=== PATIENT | female | born 1955 | race African-American/Black ===

== ENCOUNTER 2018-12-29 21:43 | Emergency (ER) | payer MEDICARE, MEDICAID ==
[~2018-12-29] VITALS: Ht 167.6 cm; Wt 36.4 kg
[2018-12-29] MEDS ORDERED: ATEN50TA PO (22:42)
[2018-12-29] MEDS ORDERED: ALBU8HFA NASAL (22:42)
[2018-12-29] MEDS ORDERED: ROFL500T PO (22:42)
[2018-12-29] MEDS ORDERED: BECL10.62 IH (22:42)
[2018-12-29] MEDS ORDERED: QUET300T2 PO (22:42)
[2018-12-29] MEDS ORDERED: FERR-89 PO (22:42)
[2018-12-29] MEDS ORDERED: LOVA20 PO (22:42)
[2018-12-29] MEDS ORDERED: AMLO2.5T4 PO (22:42)
[2018-12-29] MEDS ORDERED: ALEN35TA23 PO (22:42)
[2018-12-29 23:22] LABS: BASOPHILS % (AUTO) 1.2 % (0.0-2.0); EOSINOPHILS % (AUTO) 1.3 % (1.0-6.0); HEMATOCRIT 39.1 % (36-46); LYMPHOCYTES # (AUTO) 2.3 K/uL (1.0-4.8); LYMPHOCYTES % (AUTO) 34.6 % (22.0-44.0); MEAN CORPUSCULAR HEMOGLOBIN 29.8 pg (26.0-34.0); MEAN CORPUSCULAR HGB CONC 33.2 G/dL (31.0-37.0); MEAN CORPUSCULAR VOLUME 90 fL (80-100); MONOCYTES # (AUTO) 0.4 K/uL (0.1-1.0); MONOCYTES % (AUTO) 5.3 % (2.0-9.0); NEUTROPHILS # (AUTO) 3.9 K/uL (1.8-7.7); NEUTROPHILS % (AUTO) 57.6 % (40.0-70.0); PLATELET COUNT (AUTO) 261 K/uL (150-450); RED BLOOD CELL COUNT(AUTO) 4.36 MIL/uL (4.00-5.20); RED CELL DISTRIBUTION WIDTH 16.2 % (11.5-14.5)
[2018-12-29 23:37] LABS: ALANINE AMINOTRANSFERASE 10 U/L (12-78); ALBUMIN 3.1 g/dL (3.4-5.0); ALKALINE PHOSPHATASE 67 U/L (46-116); ANION GAP 6 mmol/L (8-16); ASPARTATE AMINOTRANSFERASE 12 U/L (15-37); BILIRUBIN,TOTAL 0.2 mg/dL (0.1-1.0); CALCIUM, TOTAL 9.1 mg/dL (8.8-10.5); CARBON DIOXIDE 32 mmol/L (22-29); CHLORIDE 106 mmol/L (98-107); CREATININE 0.68 mg/dL (0.60-1.30); GLOMERULAR FILTR. RATE CALC > 60 mL/min (>60); GLUCOSE,RANDOM 130 mg/dL (70-110); SODIUM SERUM 144 mmol/L (136-145); TOTAL PROTEIN, SERUM 7.5 g/dL (6.4-8.2); UREA NITROGEN, BLOOD 11 mg/dL (7-18)
[2018-12-29 23:45] LABS: ACETAMINOPHEN < 2 mcg/mL (10-30); POTASSIUM 2.7 mmol/L (3.5-5.1)
[2018-12-29 23:50] LABS: SALICYLATE 2.8 mg/dL (2.8-20.0)
[2018-12-30] MEDS ORDERED: POTASSIUM CHLORIDE 20 MEQ ER TABLET PO ONE
[2018-12-30 03:29] LABS: AMPHET/METH SCREEN,URINE NEGATIVE (NEGATIVE); BARBITURATE SCREEN, URINE NEGATIVE (NEGATIVE); BENZODIAZEPINES SCREEN,URINE NEGATIVE (NEGATIVE); CANNABINOID SCREEN,URINE NEGATIVE (NEGATIVE); COCAINE SCREEN,URINE NEGATIVE (NEGATIVE); METHADONE SCREEN, URINE NEGATIVE (NEGATIVE); OPIATE SCREEN,URINE NEGATIVE (NEGATIVE); PHENCYCLIDINE SCREEN,URINE NEGATIVE (NEGATIVE)
[2018-12-30 03:33] LABS: APPEARANCE,URINE CLEAR (CLEAR); BILIRUBIN,URINE NEGATIVE (NEGATIVE); GLUCOSE, URINE (UA) NEGATIVE (NEGATIVE); KETONES,URINE NEGATIVE (NEGATIVE); LEUKOCYTE ESTERASE ,URINE NEGATIVE (NEGATIVE); NITRATE,URINE NEGATIVE (NEGATIVE); OCCULT BLOOD,URINE NEGATIVE (NEGATIVE); PH,URINE 6.5 (5.0-8.0); PROTEIN,URINE NEGATIVE (NEGATIVE)
[2018-12-30 03:38] LABS: BACTERIA,URINE Rare /HPF (None Seen); MUCUS,URINE Moderate LPF (None Seen); RBC,URINE None Seen /HPF (0-2); SQUAMOUS EPITHELIAL CELL,UR Rare /LPF (None Seen)
[2018-12-30 04:45] VITALS: BP 150/80
== END 2018-12-30 06:47 | disposition short-term general hospital (02) ==
LOC: EMS 21:49
DX: F20.9 Schizophrenia, unspecified (principal); E87.6 Hypokalemia; I10 Essential (primary) hypertension; E78.00 Pure hypercholesterolemia, unspecified
CPT/HCPCS: 36415; 80053; 80307; 81001; 85025; 99285; G0480; G0481

== ENCOUNTER 2021-03-11 19:56 | Inpatient (IN) | payer MEDICARE, MEDICAID ==
[~2021-03-11] VITALS: Ht 149.9 cm; Wt 33.7 kg
[~2021-03-11 19:56] MED LIST: ALBU8HFA NASAL; ALEN35TA41 PO; AMLO2.5T96 PO; ATEN-72 PO; BECL10.62 IH; FERR-89 PO; LOVA20TA73 PO; QUET300T2 PO; ROFL500T PO
[2021-03-11] MEDS ORDERED: ALBUTEROL SULFATE 5 MG/ML 20 ML NEB SOLN [BULK] NEB ONE (20:15)
[2021-03-11] MEDS ORDERED: MethylPREDNISolone SOD SUCC 125 MG/2 ML VIAL IVP ONE (20:15)
[2021-03-11] MEDS ORDERED: IPRATROPIUM BROMIDE 0.5 MG/2.5 ML NEB SOLUTION NEB ONE (20:15)
[2021-03-11 20:26] LABS: BASOPHILS % (AUTO) 0.4 % (0.0-2.0); EOSINOPHILS % (AUTO) 0 % (1.0-6.0); HEMATOCRIT 39.1 % (36-46); HEMOGLOBIN 12.6 g/dL (12.0-16.0); LYMPHOCYTES # (AUTO) 0.6 K/uL (1.0-4.8); LYMPHOCYTES % (AUTO) 8.5 % (22.0-44.0); MEAN CORPUSCULAR HEMOGLOBIN 28.8 pg (26.0-34.0); MEAN CORPUSCULAR HGB CONC 32.2 G/dL (31.0-37.0); MEAN CORPUSCULAR VOLUME 90 fL (80-100); MONOCYTES # (AUTO) 0.5 K/uL (0.1-1.0); MONOCYTES % (AUTO) 6.9 % (2.0-9.0); NEUTROPHILS % (AUTO) 84.2 % (40.0-70.0); PLATELET COUNT (AUTO) 288 K/uL (150-450); RED BLOOD CELL COUNT(AUTO) 4.37 MIL/uL (4.00-5.20); RED CELL DISTRIBUTION WIDTH 14.7 % (11.5-14.5)
[2021-03-11 20:36] LABS: ANION GAP 7 mmol/L (8-16); CALCIUM, TOTAL 9.2 mg/dL (8.8-10.5); CARBON DIOXIDE 31 mmol/L (22-29); CHLORIDE 104 mmol/L (98-107); CREATININE 0.79 mg/dL (0.60-1.30); GLOMERULAR FILTR. RATE CALC > 60 mL/min (>60); GLUCOSE,RANDOM 155 mg/dL (70-110); POTASSIUM 4.6 mmol/L (3.5-5.1); SODIUM SERUM 142 mmol/L (136-145); UREA NITROGEN, BLOOD 38 mg/dL (7-18)
[2021-03-11] MEDS ORDERED: ACETAMINOPHEN 325 MG TABLET ONE (20:39)
[2021-03-11 20:42] LABS: BILIRUBIN,TOTAL 0.3 mg/dL (0.1-1.0); TOTAL PROTEIN, SERUM 7.5 g/dL (6.4-8.2)
[2021-03-11] MEDS ORDERED: ACETAMINOPHEN 325 MG TABLET PO ONE (20:45)
[2021-03-11 20:50] LABS: B-TYPE NATRIURETIC PEPTIDE 80 pg/mL (0-100)
[2021-03-11 20:55] LABS: ALANINE AMINOTRANSFERASE 14 U/L (12-78); ALBUMIN 3.2 g/dL (3.4-5.0); ALKALINE PHOSPHATASE 61 U/L (46-116); ASPARTATE AMINOTRANSFERASE 19 U/L (15-37)
[2021-03-11] MEDS ORDERED: IPRATROPIUM BROMIDE 0.5 MG/2.5 ML NEB SOLUTION NEB PRN (22:00)
[2021-03-11] MEDS ORDERED: ALBUTEROL SULFATE 2.5 MG/0.5 ML NEB SOLUTION NEB PRN (22:00)
[2021-03-11] MEDS ORDERED: ONDANSETRON HCL 4 MG/2 ML VIAL IVP PRN (22:00)
[2021-03-11] MEDS ORDERED: ACETAMINOPHEN 325 MG TABLET PO PRN ×2 (22:00)
[2021-03-11 22:18] LABS: COVID AG,FIA SOURCE NASOPHARYNGEAL
[2021-03-11] MEDS ORDERED: IPRATROPIUM BROMIDE 0.5 MG/2.5 ML NEB SOLUTION NEB SCH (23:00)
[2021-03-11] MEDS ORDERED: ALBUTEROL SULFATE 2.5 MG/0.5 ML NEB SOLUTION NEB SCH (23:00)
[2021-03-12] MEDS: MethylPREDNISolone SOD SUCC 125 MG/2 ML VIAL IVP SCH ×5 (00:47→23:09)
[2021-03-12] MEDS: HEPARIN SODIUM,PORCINE 5,000 UNITS/ML VIAL SQ SCH ×4 (00:47→23:08)
[2021-03-12] MEDS: ATENOLOL 25 MG TABLET PO SCH ×3 (00:47→21:13)
[2021-03-12 08:45] VITALS: BP 167/97
[2021-03-12] MEDS: FAMOTIDINE 20 MG TABLET PO SCH (08:59)
[2021-03-12] MEDS ORDERED: PNEUMOCOCCAL VACCINE POLYVALENT 0.5 ML VIAL [PPSV23] IM. ONE (10:45)
[2021-03-12 11:39] VITALS: BP 112/61
[2021-03-12] MEDS: NICOTINE 21 MG/24 HOUR PATCH TD SCH (14:10)
[2021-03-12 15:49] VITALS: BP 117/77
[2021-03-12] MEDS: ALBUTEROL SULFATE 2.5 MG/0.5 ML NEB SOLUTION NEB SCH ×3 (17:19→22:55)
[2021-03-12] MEDS: IPRATROPIUM BROMIDE 0.5 MG/2.5 ML NEB SOLUTION NEB SCH ×3 (17:19→22:55)
[2021-03-12 20:08] VITALS: BP 133/74
[2021-03-12] MEDS: QUEtiapine FUMARATE 100 MG TABLET PO SCH (21:13)
[2021-03-13] VITALS (9 sets, daily range): BP systolic 100–167; BP diastolic 62–104
[2021-03-13] MEDS: IPRATROPIUM BROMIDE 0.5 MG/2.5 ML NEB SOLUTION NEB SCH ×6 (03:00→23:46)
[2021-03-13] MEDS: MethylPREDNISolone SOD SUCC 125 MG/2 ML VIAL IVP SCH ×2 (06:10→12:00)
[2021-03-13] MEDS: ALBUTEROL SULFATE 2.5 MG/0.5 ML NEB SOLUTION NEB SCH ×5 (07:24→23:46)
[2021-03-13] MEDS: NICOTINE 21 MG/24 HOUR PATCH TD SCH (09:00)
[2021-03-13] MEDS: ATENOLOL 25 MG TABLET PO SCH ×3 (09:00→20:42)
[2021-03-13] MEDS: HEPARIN SODIUM,PORCINE 5,000 UNITS/ML VIAL SQ SCH ×2 (09:35→17:21)
[2021-03-13] MEDS: FAMOTIDINE 20 MG TABLET PO SCH (09:35)
[2021-03-13] MEDS: MAGNESIUM HYDROXIDE SUSPENSION 30 ML UDCUP PO PRN (15:51)
[2021-03-13] MEDS: QUEtiapine FUMARATE 100 MG TABLET PO SCH (20:42)
[2021-03-14 00:12] VITALS: BP 114/70
[2021-03-14] MEDS: HEPARIN SODIUM,PORCINE 5,000 UNITS/ML VIAL SQ SCH ×4 (00:13→23:34)
[2021-03-14] MEDS: ALBUTEROL SULFATE 2.5 MG/0.5 ML NEB SOLUTION NEB SCH ×5 (02:54→23:42)
[2021-03-14] MEDS: IPRATROPIUM BROMIDE 0.5 MG/2.5 ML NEB SOLUTION NEB SCH ×6 (02:54→23:42)
[2021-03-14 05:08] VITALS: BP 126/86
[2021-03-14 07:18] VITALS: BP 128/73
[2021-03-14] MEDS: PredniSONE 10 MG TABLET PO SCH (08:18)
[2021-03-14] MEDS: FAMOTIDINE 20 MG TABLET PO SCH (08:18)
[2021-03-14] MEDS: ATENOLOL 25 MG TABLET PO SCH ×2 (08:18→20:49)
[2021-03-14] MEDS: NICOTINE 21 MG/24 HOUR PATCH TD SCH (08:31)
[2021-03-14 11:25] VITALS: BP 128/74
[2021-03-14 16:56] VITALS: BP 122/68
[2021-03-14 19:20] VITALS: BP 126/75
[2021-03-14] MEDS: QUEtiapine FUMARATE 100 MG TABLET PO SCH (20:49)
[2021-03-15] MEDS: IPRATROPIUM BROMIDE 0.5 MG/2.5 ML NEB SOLUTION NEB SCH ×6 (03:00→23:00)
[2021-03-15 04:13] VITALS: BP 108/62
[2021-03-15 07:03] VITALS: BP 113/69
[2021-03-15] MEDS: ALBUTEROL SULFATE 2.5 MG/0.5 ML NEB SOLUTION NEB SCH ×5 (07:27→23:00)
[2021-03-15] MEDS: ATENOLOL 25 MG TABLET PO SCH ×2 (09:53→20:43)
[2021-03-15] MEDS: FAMOTIDINE 20 MG TABLET PO SCH (09:53)
[2021-03-15] MEDS: NICOTINE 21 MG/24 HOUR PATCH TD SCH (09:53)
[2021-03-15] MEDS: HEPARIN SODIUM,PORCINE 5,000 UNITS/ML VIAL SQ SCH ×3 (09:53→23:28)
[2021-03-15] MEDS: PredniSONE 10 MG TABLET PO SCH (09:53)
[2021-03-15] MEDS: OxyCODONE HCL/ACETAMINOPHEN 5-325 MG TABLET PO PRN (09:59)
[2021-03-15 11:50] VITALS: BP 125/75
[2021-03-15 16:07] VITALS: BP 121/68
[2021-03-15 20:00] VITALS: BP 124/66
[2021-03-15] MEDS: QUEtiapine FUMARATE 100 MG TABLET PO SCH (20:44)
[2021-03-15 22:25] VITALS: BP 135/81
[2021-03-16] MEDS: IPRATROPIUM BROMIDE 0.5 MG/2.5 ML NEB SOLUTION NEB SCH ×6 (03:00→23:00)
[2021-03-16 04:00] VITALS: BP 115/63
[2021-03-16] MEDS: ALBUTEROL SULFATE 2.5 MG/0.5 ML NEB SOLUTION NEB SCH ×5 (07:17→23:00)
[2021-03-16 07:38] VITALS: BP 132/76
[2021-03-16] MEDS: PredniSONE 10 MG TABLET PO SCH (08:37)
[2021-03-16] MEDS: ATENOLOL 25 MG TABLET PO SCH ×2 (08:38→21:34)
[2021-03-16] MEDS: HEPARIN SODIUM,PORCINE 5,000 UNITS/ML VIAL SQ SCH ×3 (08:38→23:23)
[2021-03-16] MEDS: FAMOTIDINE 20 MG TABLET PO SCH (08:38)
[2021-03-16] MEDS: NICOTINE 21 MG/24 HOUR PATCH TD SCH (08:40)
[2021-03-16 11:23] LABS: BASOPHILS % (AUTO) 0.3 % (0.0-2.0); EOSINOPHILS % (AUTO) 0.4 % (1.0-6.0); HEMATOCRIT 33.2 % (36-46); LYMPHOCYTES # (AUTO) 1.2 K/uL (1.0-4.8); LYMPHOCYTES % (AUTO) 10.9 % (22.0-44.0); MEAN CORPUSCULAR HEMOGLOBIN 28.9 pg (26.0-34.0); MEAN CORPUSCULAR VOLUME 88 fL (80-100); MONOCYTES # (AUTO) 0.6 K/uL (0.1-1.0); MONOCYTES % (AUTO) 5.7 % (2.0-9.0); NEUTROPHILS # (AUTO) 9.1 K/uL (1.8-7.7); NEUTROPHILS % (AUTO) 82.7 % (40.0-70.0); PLATELET COUNT (AUTO) 256 K/uL (150-450); RED CELL DISTRIBUTION WIDTH 14.9 % (11.5-14.5)
[2021-03-16 11:49] LABS: ANION GAP -1 mmol/L (8-16); CARBON DIOXIDE 38 mmol/L (22-29); CHLORIDE 101 mmol/L (98-107); CREATININE 0.53 mg/dL (0.60-1.30); GLOMERULAR FILTR. RATE CALC > 60 mL/min (>60); GLUCOSE,RANDOM 141 mg/dL (70-110); POTASSIUM 3.8 mmol/L (3.5-5.1); SODIUM SERUM 138 mmol/L (136-145); UREA NITROGEN, BLOOD 13 mg/dL (7-18)
[2021-03-16] MEDS: MAGNESIUM HYDROXIDE SUSPENSION 30 ML UDCUP PO PRN (12:50)
[2021-03-16 20:24] VITALS: BP 148/83
[2021-03-16] MEDS: QUEtiapine FUMARATE 100 MG TABLET PO SCH (21:33)
[2021-03-17] MEDS: IPRATROPIUM BROMIDE 0.5 MG/2.5 ML NEB SOLUTION NEB SCH ×4 (03:00→15:00)
[2021-03-17 04:23] VITALS: BP 121/68
[2021-03-17] MEDS: ALBUTEROL SULFATE 2.5 MG/0.5 ML NEB SOLUTION NEB SCH ×3 (07:00→15:00)
[2021-03-17 07:48] VITALS: BP 150/62
[2021-03-17] MEDS: ATENOLOL 25 MG TABLET PO SCH ×2 (08:32→20:08)
[2021-03-17] MEDS: FAMOTIDINE 20 MG TABLET PO SCH (08:32)
[2021-03-17] MEDS: NICOTINE 21 MG/24 HOUR PATCH TD SCH (08:32)
[2021-03-17] MEDS: HEPARIN SODIUM,PORCINE 5,000 UNITS/ML VIAL SQ SCH ×3 (08:32→23:37)
[2021-03-17] MEDS: PredniSONE 10 MG TABLET PO SCH (08:32)
[2021-03-17 15:46] VITALS: BP 122/70
[2021-03-17 19:45] VITALS: BP 145/93
[2021-03-17] MEDS: OxyCODONE HCL/ACETAMINOPHEN 5-325 MG TABLET PO PRN (20:08)
[2021-03-17] MEDS: QUEtiapine FUMARATE 100 MG TABLET PO SCH (20:08)
[2021-03-18 04:10] VITALS: BP 123/76
[2021-03-18] MEDS: IPRATROPIUM BROMIDE 0.5 MG/2.5 ML NEB SOLUTION NEB SCH ×5 (07:00→23:00)
[2021-03-18] MEDS: ALBUTEROL SULFATE 2.5 MG/0.5 ML NEB SOLUTION NEB SCH ×5 (07:00→23:00)
[2021-03-18 08:00] VITALS: BP 124/72
[2021-03-18] MEDS: PredniSONE 10 MG TABLET PO SCH (08:29)
[2021-03-18] MEDS: ATENOLOL 25 MG TABLET PO SCH ×2 (08:29→20:15)
[2021-03-18] MEDS: HEPARIN SODIUM,PORCINE 5,000 UNITS/ML VIAL SQ SCH ×3 (08:29→22:33)
[2021-03-18] MEDS: FAMOTIDINE 20 MG TABLET PO SCH (08:29)
[2021-03-18] MEDS: NICOTINE 21 MG/24 HOUR PATCH TD SCH (08:30)
[2021-03-18] MEDS ORDERED: ALBUTEROL SULFATE HFA 90 MCG/PUFF 8 GM INHALER IH PRN (15:15)
[2021-03-18 15:24] VITALS: BP 122/75
[2021-03-18 16:01] LABS: COVID AG,FIA SOURCE NASAL SWAB
[2021-03-18 20:05] VITALS: BP 125/77
[2021-03-18] MEDS: OxyCODONE HCL/ACETAMINOPHEN 5-325 MG TABLET PO PRN (20:19)
[2021-03-18] MEDS: QUEtiapine FUMARATE 100 MG TABLET PO SCH (20:19)
[2021-03-19] MEDS: IPRATROPIUM BROMIDE 0.5 MG/2.5 ML NEB SOLUTION NEB SCH ×3 (03:00→11:00)
[2021-03-19] MEDS: ALBUTEROL SULFATE 2.5 MG/0.5 ML NEB SOLUTION NEB SCH ×2 (03:22→09:02)
[2021-03-19 08:36] VITALS: BP 152/62
[2021-03-19] MEDS: ATENOLOL 25 MG TABLET PO SCH (09:16)
[2021-03-19] MEDS: NICOTINE 21 MG/24 HOUR PATCH TD SCH (09:16)
[2021-03-19] MEDS: FAMOTIDINE 20 MG TABLET PO SCH (09:16)
[2021-03-19] MEDS: PredniSONE 10 MG TABLET PO SCH (09:17)
[2021-03-19] MEDS: HEPARIN SODIUM,PORCINE 5,000 UNITS/ML VIAL SQ SCH (09:17)
[2021-03-19 15:37] VITALS: BP 142/82
== END 2021-03-19 14:50 | DRG 190 ==
LOC: EMS 19:57 → 5S 03-12 06:00 → 6N 03-16 10:30
PROVIDERS: ADMIT Internal Medicine; ATTEND Internal Medicine
DX: J44.1 Chronic obstructive pulmonary disease with (acute) exacerbation (principal); U07.1 COVID-19; E43 Unspecified severe protein-calorie malnutrition; J96.11 Chronic respiratory failure with hypoxia; Z68.1 Body mass index [BMI] 19.9 or less, adult; I10 Essential (primary) hypertension; F20.9 Schizophrenia, unspecified; R62.7 Adult failure to thrive; E78.00 Pure hypercholesterolemia, unspecified; E78.5 Hyperlipidemia, unspecified
CPT/HCPCS: 71045; 80048; 80053; 83735; 83880; 85025; 93005; 94640; 99291; J1644; J2930; 36415-L1; 36415-TC; J7512; J7613; Z7610